=== PATIENT | female | born 1990 ===

== ENCOUNTER 2017-02-16 22:23 | Emergency (ER) | payer SELFPAY ==
--- NOTE | 2017-02-16 22:56 | C.PDOC ---
History Of Present Illness Patient presents to the ER with a complaint of dizziness, headache, not feeling well and feeling cold. Patient reports she has not taken her thyroid medication in over a year. Denies fever, chills, nausea or vomiting. Time Seen by Provider: 02/16/17 22:55 Chief Complaint (Nursing): Dizziness/Lightheaded History Per: Patient History/Exam Limitations: no limitations Onset/Duration Of Symptoms: Hrs Current Symptoms Are (Timing): Still Present Severity: Mild Pain Scale Rating Of: 2 Recent travel outside of the [place]: No Past Medical History Reviewed: Historical Data, Nursing Documentation, Vital Signs Vital Signs: Last Vital Signs Temp 98.1 F 02/16/17 22:34 Pulse 87 02/16/17 22:34 Resp 16 02/16/17 22:34 BP 125/82 02/16/17 22:34 Pulse Ox 100 02/16/17 23:14 - Medical History PMH: Hyperthyroidism, Hypothyroidism Surgical History: No Surg Hx Family History: States: No Known Family Hx - Social History Hx Tobacco Use: No Hx Alcohol Use: No Hx Substance Use: No - Immunization History Hx Tetanus Toxoid Vaccination: No Hx Influenza Vaccination: Yes Hx Pneumococcal Vaccination: Yes Review Of Systems Constitutional: Negative for: Fever, Chills Eyes: Negative for: Pain ENT: Negative for: Throat Pain Cardiovascular: Negative for: Chest Pain Respiratory: Negative for: Shortness of Breath Gastrointestinal: Negative for: Nausea, Vomiting Musculoskeletal: Negative for: Back Pain Skin: Negative for: Rash, Lesions, Jaundice, Bruising Neurological: Positive for: Headache, Dizziness Psych: Negative for: Anxiety Physical Exam - Physical Exam Appears: Non-toxic Skin: Warm, Dry Head: Atraumatic Oral Mucosa: Moist Throat: Normal Neck: Trachea Midline, Supple Chest: Symmetrical, No Tenderness Cardiovascular: Rhythm Regular, No Murmur Respiratory: No Rales, No Rhonchi, No Wheezing Gastrointestinal/Abdominal: Soft, No Tenderness Back: Normal Inspection Extremity: Bilateral: Atraumatic, Normal Color And Temperature, Normal ROM Neurological/Psych: Oriented x3, Normal Speech, Normal Cognition Gait: Steady ED Course And Treatment - Laboratory Results Result Diagrams: 02/16/17 23:45 02/16/17 23:45 O2 Sat by Pulse Oximetry: 100 (Room air) Pulse Ox Interpretation: Normal Progress Note: Blood work and urinalysis ordered. Reevaluation Time: 01:01 Reassessment Condition: Improved Medical Decision Making Medical Decision Making: Upon provider reevaluation patient is feeling better, is medically stable, and requires no further treatment in the ED at this time. Patient will be discharged home with Rx for macrobid . Counseling was provided and all questions were answered regarding diagnosis and need for follow up with the referred clinic. There is agreement to discharge plan. Return if symptoms persist or worsen. Disposition Counseled Patient/Family Regarding: Studies Performed, Diagnosis, Need For Followup, Rx Given - Disposition Referrals: [facility] [Outside] [facility] [Outside] Disposition: HOME/ ROUTINE Disposition Time: 22:56 Condition: FAIR Prescriptions: Nitrofurantoin Macrocrystals [Macrobid] 1 cap PO BID #14 cap Instructions: Urinary Tract Infection in Women (DC), Hypothyroidism (ED) Print Language: UKRAINIAN - Clinical Impression Clinical Impression: UTI (urinary tract infection), Hypothyroid - Scribe Statement The provider has reviewed the documentation as recorded by the Loyibkathy Vilchis All medical record entries made by the Jose were at my direction and personally dictated by me. I have reviewed the chart and agree that the record accurately reflects my personal performance of the history, physical exam, medical decision making, and the department course for this patient. I have also personally directed, reviewed, and agree with the discharge instructions and disposition.
[2017-02-16 23:48] LABS: BASO % 0.5 % (0.0-2.0); EOS # 0.2 K/uL (0.0-0.7); EOS % 1.9 % (0.0-4.0); HEMATOCRIT 30.7 % (34.0-47.0); LYMPH # 2.6 K/uL (1.0-4.3); LYMPH % 30.4 % (20.0-40.0); MEAN CELL VOLUME 72.7 fL (81.0-99.0); MEAN CORPUSCULAR HGB CONC 31.7 g/dL (33.0-37.0); MEAN PLATELET VOLUME 8.4 fL (7.2-11.7); MONO # 0.5 K/uL (0.0-0.8); MONO % 5.8 % (0.0-10.0); RED CELL DISTRIBUTION WIDTH 16.9 % (11.5-14.5); WHITE BLOOD COUNT 8.4 K/uL (4.8-10.8)
[2017-02-16 23:52] LABS: RBC URINE 14 /hpf (0-3); TRANSITIONAL EPITHIAL < 1 /hpf (0-3); URINE BACTERIA OCC (<OCC); URINE BILIRUBIN NEGATIVE (NEGATIVE); URINE BLOOD 2+ (NEGATIVE); URINE COLOR Yellow (YELLOW); URINE GLUCOSE (UA) NORMAL (Normal); URINE KETONE NEGATIVE (NEGATIVE); URINE LEUKOCYTE ESTERASE 2+ Leu/uL (Negative); URINE PROTEIN NEGATIVE (NEGATIVE); URINE UROBILINOGEN NORMAL mg/dL (0.2-1.0); WBC URINE 21 /hpf (0-5)
[2017-02-16 23:57] LABS: CHLORIDE 102 mmol/L (98-107); POTASSIUM 3.6 mmol/L (3.6-5.2); SODIUM 137 mmol/L (132-148)
[2017-02-16 23:59] LABS: BILIRUBIN,TOTAL 0.5 mg/dL (0.2-1.3); GFR AFRICAN-AMERICAN > 60
[2017-02-17] LABS: ALB/GLOB RATIO 1.2 (1.0-2.1); ALKALINE PHOSPHATASE 56 U/L (38-126); ALT/SGPT 17 U/L (9-52); AST/SGOT 18 U/L (14-36); BLOOD UREA NITROGEN 12 mg/dL (7-17); CALCIUM 8.2 mg/dl (8.6-10.4); CARBON DIOXIDE 24 mmol/L (22-30); GLUCOSE,RANDOM 89 mg/dL (65-105); TOTAL PROTEIN 7.5 g/dL (6.3-8.3)
[2017-02-17 00:30] LABS: THYROID STIMULATING HORMONE 9.05 mIU/L (0.46-4.68)
[2017-02-17 01:15] VITALS: BP 123/78; PULSE 80; RESP 18; TEMP 98.2; O2SAT 98
== END 2017-02-17 01:15 | disposition home or self-care (01) ==
LOC: C.ER 22:23
DX: N39.0 Urinary tract infection, site not specified (principal); E03.9 Hypothyroidism, unspecified

== ENCOUNTER 2017-04-06 18:58 | Emergency (ER) | payer SELFPAY ==
[2017-04-06 19:02] VITALS: BMI 31.7
[2017-04-06 19:05] VITALS: RESP 18; O2SAT 100
--- NOTE | 2017-04-06 19:30 | C.PDOC ---
History Of Present Illness Patient is a 26 y/o female that presents to the ED for evaluation of right sided headache for the past week. Patient also complains of associated dizziness , nausea, and 1 episode of vomiting. Pt states her headache was persistent and worse today which prompted ED visit. Otherwise, denies any LOC, weakness, numbness, visual changes, change in speech, fever, chills, or any other associated symptoms at this time. Chief Complaint (Nursing): Headache History Per: Patient History/Exam Limitations: no limitations Onset/Duration Of Symptoms: Days (1 week) Current Symptoms Are (Timing): Still Present Quality: Aching Preceeding Symptoms: None. denies: Visual Disturbances Associated Symptoms: Nausea, Vomiting. denies: Photophobia, Blurred Vision, Extremity Weakness Recent travel outside of the [place]: No Additional History Per: Patient Past Medical History Reviewed: Historical Data, Nursing Documentation, Vital Signs Vital Signs: Last Vital Signs Temp 98.4 F 04/06/17 19:02 Pulse 72 04/06/17 19:02 Resp 18 04/06/17 19:02 BP 131/79 04/06/17 19:02 Pulse Ox 100 04/06/17 19:41 - Medical History PMH: Hypothyroidism Denies: Hyperthyroidism (DENIES) Family History: States: Unknown Family Hx - Social History Hx Tobacco Use: No Hx Alcohol Use: No Hx Substance Use: No - Immunization History Hx Tetanus Toxoid Vaccination: No Hx Influenza Vaccination: Yes Hx Pneumococcal Vaccination: Yes Review Of Systems Except As Marked, All Systems Reviewed And Found Negative. Constitutional: Negative for: Fever, Chills Gastrointestinal: Positive for: Nausea, Vomiting. Negative for: Abdominal Pain , Diarrhea Musculoskeletal: Negative for: Neck Pain Skin: Negative for: Rash, Bruising Neurological: Positive for: Headache, Dizziness. Negative for: Weakness, Numbness, Incoordination, Change in Speech, Confusion Physical Exam - Physical Exam Appears: Non-toxic, Other (In mild distress) Skin: Normal Color, Warm, Dry Head: Atraumatic, Normacephalic Eye(s): bilateral: Normal Inspection, PERRL, EOMI, Other (Retinoscopy: no papilledema, no bleeding ) Neck: Normal ROM, Supple Chest: Symmetrical, No Tenderness Cardiovascular: Rhythm Regular, No Murmur Respiratory: Normal Breath Sounds, No Rales, No Rhonchi, No Wheezing Gastrointestinal/Abdominal: Soft, No Tenderness Extremity: Normal ROM, No Deformity Extremity: Bilateral: Atraumatic Neurological/Psych: Oriented x3, Normal Speech, Normal Cognition, Normal Motor, Normal Sensation, Other (Neurologically intact) ED Course And Treatment - Laboratory Results Result Diagrams: 04/06/17 19:46 04/06/17 19:46 O2 Sat by Pulse Oximetry: 100 (on RA) Pulse Ox Interpretation: Normal Progress Note: Cervical spine CT, head CT, blood work, urinalysis ordered and reviewed. Patient was given Reglan and Toradol in the ER. Disposition Counseled Patient/Family Regarding: Diagnosis - Disposition Referrals: [facility] [Outside] Disposition: HOME/ ROUTINE Disposition Time: 21:07 Condition: STABLE Prescriptions: Ibuprofen [Motrin] 1 tab PO TID PRN #30 tab PRN Reason: Pain Instructions: General Headache (ED) Forms: Gen Discharge Inst Lao Print Language: JAPANESE - POA Present On Arrival: None - Clinical Impression Clinical Impression: Headache - Scribe Statement The provider has reviewed the documentation as recorded by the Scribkathy Cho All medical record entries made by the Loyibkathy were at my direction and personally dictated by me. I have reviewed the chart and agree that the record accurately reflects my personal performance of the history, physical exam, medical decision making, and the department course for this patient. I have also personally directed, reviewed, and agree with the discharge instructions and disposition.
[2017-04-06 19:53] LABS: BASO % 0.4 % (0.0-2.0); EOS # 0.2 K/uL (0.0-0.7); EOS % 2.4 % (0.0-4.0); HEMOGLOBIN 9.8 g/dL (11.0-16.0); LYMPH # 2.7 K/uL (1.0-4.3); LYMPH % 30.4 % (20.0-40.0); MEAN CELL VOLUME 73.3 fL (81.0-99.0); MEAN CORPUSCULAR HEMOGLOBIN 22.7 pg (27.0-31.0); MEAN PLATELET VOLUME 8.2 fL (7.2-11.7); MONO # 0.6 K/uL (0.0-0.8); MONO % 6.4 % (0.0-10.0); NEUT # 5.4 K/uL (1.8-7.0); NEUT % 60.4 % (50.0-75.0); RBC 4.34 Mil/uL (3.80-5.20)
[2017-04-06 20:14] LABS: ALBUMIN 3.9 g/dL (3.5-5.0)
[2017-04-06 20:16] LABS: GFR AFRICAN-AMERICAN > 60; GFR NON-AFRICAN AMERICAN > 60
[2017-04-06 20:17] LABS: ALB/GLOB RATIO 1.2 (1.0-2.1); ALT/SGPT 29 U/L (9-52); AST/SGOT 20 U/L (14-36); BLOOD UREA NITROGEN 11 mg/dL (7-17); CALCIUM 8.6 mg/dl (8.6-10.4)
--- NOTE | 2017-04-06 20:40 | CT ---
EXAM: CT Head Without Intravenous Contrast CLINICAL HISTORY: 26 years old, female; Condition or disease; Headache; Tension TECHNIQUE: Axial computed tomography images of the head/brain without intravenous contrast. This CT exam was performed using one or more of the following dose reduction techniques: automated exposure control, adjustment of the mA and/or kV according to patient size, and/or use of iterative reconstruction technique. EXAM DATE/TIME: 04/06/2017 7:26 PM COMPARISON: No relevant prior studies available. FINDINGS: BRAIN: No significant acute abnormality identified. No acute hemorrhage seen within the brain. No acute extra-axial fluid collections visualized. No evidence of significant mass effect within the brain. Normal cabrales-white matter differentiation. VENTRICLES: No evidence of significant hydrocephalus. BONES/JOINTS: No acute fractures or other acute bony abnormality noted. SOFT TISSUES: No acute abnormality of the visualized soft tissues is seen. SINUSES: Visualized paranasal sinuses appear clear. MASTOID AIR CELLS: Mastoid air cells appear clear. IMPRESSION: - No acute findings seen within the brain. - See above for remaining findings.
--- NOTE | 2017-04-06 20:52 | CT ---
EXAM: CT Cervical Spine Without Intravenous Contrast CLINICAL HISTORY: 26 years old, female; Pain; Neck pain; Additional info: Neck pain/ headache/ nausea/ vomiting TECHNIQUE: Axial computed tomography images of the cervical spine without intravenous contrast. This CT exam was performed using one or more of the following dose reduction techniques: automated exposure control, adjustment of the mA and/or kV according to patient size, and/or use of iterative reconstruction technique. Coronal and sagittal reformatted images were created and reviewed. EXAM DATE/TIME: 04/06/2017 7:28 PM COMPARISON: No relevant prior studies available. FINDINGS: VERTEBRAE: No acute cervical spine fractures visualized. No evidence of significant vertebral subluxation. Normal alignment of the facet joints. DISCS/SPINAL CANAL/NEURAL FORAMINA: Intervertebral disc heights are preserved. No evidence of bony spinal canal stenosis. SOFT TISSUES: No acute abnormality of the visualized soft tissues is seen. OROPHARYNX: [place] tonsils appear mildly enlarged bilaterally. No peritonsillar abscess is seen. LUNG APICES: No pneumothorax seen. IMPRESSION: - No evidence of fractures or other acute bony abnormality. - Mild enlargement of the palatine tonsils incidentally noted, which could be due to tonsillar hypertrophy or tonsillitis. Recommend clinical correlation. - See above for remaining findings.
[2017-04-06 21:33] VITALS: BP 120/75; PULSE 75; TEMP 98.5
--- NOTE | 2017-04-07 10:00 | RAD ---
PROCEDURE: Cervical Spine Radiographs. HISTORY: Pain. COMPARISON: None. FINDINGS: BONES: Straightening of the normal cervical lordosis. . No fracture. Dens Intact. DISC SPACES: Normal. SOFT TISSUES: Normal. No prevertebral soft tissue swelling. OTHER FINDINGS: None. IMPRESSION: No fracture. Straightening of the normal cervical lordosis consistent with positioning and/or spasm.
== END 2017-04-06 21:34 | disposition home or self-care (01) ==
LOC: C.ER 18:58
DX: R51 Headache (principal)
CPT/HCPCS: 70450; 72040; 72125; 80053; 85025; 96374; 96375; 99285; J1885; J2765

== ENCOUNTER 2017-08-10 09:30 | Emergency (ER) | payer SELFPAY ==
[2017-08-10 09:30] VITALS: BMI 31.0
[2017-08-10] MEDS ORDERED: Sodium Chloride 0.9% 1,000 ML IV ONE (09:48)
--- NOTE | 2017-08-10 09:54 | C.PDOC ---
History Of Present Illness 26 y/o female presents to ED with c/o abdominal pain for 20 days. Patient reports she had a depo shot 06/13/17, but notes vaginal bleeding and cramping began in June. Denies fever, chills, nausea, vomiting, diarrhea, or other associated symptoms. Time Seen by Provider: 08/10/17 09:41 Chief Complaint (Nursing): Abdominal Pain History Per: Patient History/Exam Limitations: no limitations Onset/Duration Of Symptoms: Days Current Symptoms Are (Timing): Still Present Location Of Pain/Discomfort: Diffuse Quality Of Discomfort: Cramping, "Pain" Associated Symptoms: denies: Fever, Nausea, Vomiting, Diarrhea, Urinary Symptoms Recent travel outside of the [place]: No Abnormal Vaginal Bleeding: Yes Past Medical History Reviewed: Historical Data, Nursing Documentation, Vital Signs Vital Signs: Last Vital Signs Temp 98.2 F 08/10/17 11:41 Pulse 84 08/10/17 11:41 Resp 18 08/10/17 11:41 BP 128/78 08/10/17 11:41 Pulse Ox 96 08/10/17 18:33 - Medical History PMH: Hypothyroidism Denies: Hyperthyroidism (DENIES) Family History: States: Unknown Family Hx - Social History Hx Tobacco Use: No Hx Alcohol Use: No Hx Substance Use: No - Immunization History Hx Tetanus Toxoid Vaccination: No Hx Influenza Vaccination: Yes Hx Pneumococcal Vaccination: Yes Review Of Systems Except As Marked, All Systems Reviewed And Found Negative. Constitutional: Negative for: Fever, Chills Cardiovascular: Negative for: Chest Pain Respiratory: Negative for: Cough, Shortness of Breath, Wheezing Gastrointestinal: Positive for: Abdominal Pain. Negative for: Vomiting Genitourinary: Positive for: Vaginal Bleeding Skin: Negative for: Rash Neurological: Negative for: Headache, Dizziness Physical Exam - Physical Exam Appears: Non-toxic, No Acute Distress Skin: Warm, Dry Head: Atraumatic, Normacephalic Chest: Symmetrical Cardiovascular: Rhythm Regular Respiratory: Normal Breath Sounds, No Rales, No Rhonchi, No Wheezing Gastrointestinal/Abdominal: Soft, Tenderness (diffuse), No Guarding, No Rebound Back: Normal Inspection Extremity: Normal ROM, Capillary Refill (< 2 sec.) Neurological/Psych: Oriented x3, Normal Speech, Normal Cognition ED Course And Treatment - Laboratory Results Result Diagrams: 08/10/17 10:12 08/10/17 10:12 Lab Interpretation: No Acute Changes O2 Sat by Pulse Oximetry: 96 (RA) Pulse Ox Interpretation: Normal - CT Scan/US No standard instances Other Rad Studies (CT/US): Read By Radiologist, Radiology Report Reviewed CT/US Interpretation: FINDINGS: UTERUS: Measures 8.7 x 5.0 x 6.4 cm. Retroverted. ENDOMETRIUM: Measures 5 mm in diameter. CERVIX: No cervical abnormality identified. RIGHT OVARY: Measures 3.3 x 1.8 x 2.3 cm. Blood flow is demonstrated. LEFT OVARY: Measures 3.1 x 2.4 x 3.4 cm. Blood flow is demonstrated. FREE FLUID: No significant free fluid noted. OTHER FINDINGS: None. IMPRESSION: No acute findings. Progress Note: Ultrasound, UA, labs ordered. Treated with Toradol and IVFs. Reassessment Condition: Improved Disposition Counseled Patient/Family Regarding: Studies Performed, Diagnosis, Need For Followup, Rx Given - Disposition Referrals: [facility] [Outside] [facility] [Outside] Disposition: HOME/ ROUTINE Disposition Time: 11:40 Condition: STABLE Prescriptions: Nitrofurantoin Macrocrystals [Macrobid] 1 cap PO BID #14 cap Instructions: Urinary Tract Infection in Women (ED) Forms: [employer] (Bengali) Print Language: UKRAINIAN - POA Present On Arrival: None - Clinical Impression Clinical Impression: Abdominal pain, UTI (urinary tract infection) - 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 - Scribe Statement The provider has reviewed the documentation as recorded by the Scribe SM All medical record entries made by the Scribe were at my direction and personally dictated by me. I have reviewed the chart and agree that the record accurately reflects my personal performance of the history, physical exam, medical decision making, and the department course for this patient. I have also personally directed, reviewed, and agree with the discharge instructions and disposition.
[2017-08-10 10:24] LABS: BASO % 0.4 % (0.0-2.0); EOS # 0.1 K/uL (0.0-0.7); EOS % 1.3 % (0.0-4.0); HEMATOCRIT 33.3 % (34.0-47.0); LYMPH # 1.8 K/uL (1.0-4.3); LYMPH % 25.8 % (20.0-40.0); MEAN CELL VOLUME 73.8 fL (81.0-99.0); MEAN CORPUSCULAR HEMOGLOBIN 23.1 pg (27.0-31.0); MEAN CORPUSCULAR HGB CONC 31.3 g/dL (33.0-37.0); MEAN PLATELET VOLUME 8.3 fL (7.2-11.7); MONO # 0.4 K/uL (0.0-0.8); MONO % 6.3 % (0.0-10.0); RED CELL DISTRIBUTION WIDTH 17.5 % (11.5-14.5); WHITE BLOOD COUNT 6.8 K/uL (4.8-10.8)
[2017-08-10 10:32] LABS: ALKALINE PHOSPHATASE 55 U/L (38-126); ALT/SGPT 37 U/L (9-52); AST/SGOT 21 U/L (14-36); BILIRUBIN,TOTAL 0.3 mg/dL (0.2-1.3); BLOOD UREA NITROGEN 10 mg/dL (7-17); CALCIUM 8.8 mg/dl (8.6-10.4); CARBON DIOXIDE 23 mmol/L (22-30); CHLORIDE 103 mmol/L (98-107); GFR AFRICAN-AMERICAN > 60; GLUCOSE,RANDOM 76 mg/dL (65-105); POTASSIUM 3.9 mmol/L (3.6-5.2); SODIUM 137 mmol/L (132-148); TOTAL PROTEIN 8.4 g/dL (6.3-8.3)
[2017-08-10 10:34] LABS: ALB/GLOB RATIO 1.1 (1.0-2.1)
[2017-08-10 11:01] LABS: RBC URINE 9 /hpf (0-3); URINE BILIRUBIN NEGATIVE (NEGATIVE); URINE BLOOD 1+ (NEGATIVE); URINE COLOR Yellow (YELLOW); URINE GLUCOSE (UA) NORMAL (Normal); URINE KETONE NEGATIVE (NEGATIVE); URINE LEUKOCYTE ESTERASE 2+ Leu/uL (Negative); URINE PROTEIN NEGATIVE (NEGATIVE); URINE UROBILINOGEN NORMAL mg/dL (0.2-1.0); WBC URINE 9 /hpf (0-5)
--- NOTE | 2017-08-10 11:25 | US ---
HISTORY: vaginal bleeding COMPARISON: None available. TECHNIQUE: Real-time transabdominal pelvic ultrasound was performed. In addition a transvaginal pelvic ultrasound was necessary to better depict pelvic anatomy. FINDINGS: UTERUS: Measures 8.7 x 5.0 x 6.4 cm. Retroverted. ENDOMETRIUM: Measures 5 mm in diameter. CERVIX: No cervical abnormality identified. RIGHT OVARY: Measures 3.3 x 1.8 x 2.3 cm. Blood flow is demonstrated. LEFT OVARY: Measures 3.1 x 2.4 x 3.4 cm. Blood flow is demonstrated. FREE FLUID: No significant free fluid noted. OTHER FINDINGS: None. IMPRESSION: No acute findings.
[2017-08-10 11:42] VITALS: BP 128/78; PULSE 84; RESP 18; TEMP 98.2
[2017-08-10 18:33] VITALS: O2SAT 96
== END 2017-08-10 11:43 | disposition home or self-care (01) ==
LOC: C.ER 09:30
DX: N39.0 Urinary tract infection, site not specified (principal); R10.9 Unspecified abdominal pain
CPT/HCPCS: 76830; 76856; 80053; 81001; 84703; 85025; 96361; 96374; 99284; J1885; J7040

== ENCOUNTER 2017-10-17 19:35 | Emergency (ER) | payer OTHER ==
[2017-10-17 19:35] VITALS: BMI 31.0
[2017-10-17 20:37] VITALS: RESP 20; O2SAT 98
[2017-10-17] MEDS ORDERED: Apap-Butalbital-Caffeine 325-50-40mg Tab PO STA (21:20)
--- NOTE | 2017-10-17 23:40 | C.PDOC ---
History Of Present Illness 26 y/o female presents to ED with complaints of intermittent headache for 2 weeks with associated nausea and photophobia. Patient denies prior history of headache and reports she took 200mg Advil with minimal relief. Patient states pain is on left frontal area radiating to left orbital area. Patient denies decreased vision, numbness,weakness or any other complaints at this time. Time Seen by Provider: 10/17/17 21:04 Chief Complaint (Nursing): Headache History Per: Patient History/Exam Limitations: no limitations Onset/Duration Of Symptoms: Days Current Symptoms Are (Timing): Still Present Associated Symptoms: Photophobia, Nausea Past Medical History Reviewed: Historical Data, Nursing Documentation, Vital Signs Vital Signs: Last Vital Signs Temp 97.8 F 10/18/17 00:18 Pulse 82 10/18/17 00:18 Resp 20 10/18/17 00:18 BP 130/70 10/18/17 00:18 Pulse Ox 98 10/18/17 08:08 - Medical History PMH: Hypothyroidism Surgical History: No Surg Hx Family History: States: No Known Family Hx - Social History Hx Tobacco Use: No Hx Alcohol Use: No Hx Substance Use: No - Immunization History Hx Tetanus Toxoid Vaccination: No Hx Influenza Vaccination: No Hx Pneumococcal Vaccination: No Review Of Systems Constitutional: Negative for: Fever, Chills Eyes: Negative for: Vision Change Gastrointestinal: Positive for: Nausea Skin: Negative for: Rash Neurological: Positive for: Headache. Negative for: Weakness, Numbness Physical Exam - Physical Exam Appears: Non-toxic, No Acute Distress Skin: Warm, Dry, No Rash Head: Atraumatic, Tenderness (frontal sinus L>R), No Swelling (facial ), No Other (temporal area tenderness) Eye(s): bilateral: Normal Inspection, PERRL, EOMI Ear(s): Bilateral: Normal Oral Mucosa: Moist Teeth: Normal Dentition Neck: Normal ROM, Supple Cardiovascular: Rhythm Regular Respiratory: Normal Breath Sounds, No Rhonchi, No Wheezing Extremity: Normal ROM, Capillary Refill (<2 seconds) Neurological/Psych: Oriented x3, Normal Motor, Normal Sensation Gait: Steady ED Course And Treatment O2 Sat by Pulse Oximetry: 98 (RA) Pulse Ox Interpretation: Normal Medical Decision Making Medical Decision Making: [place]: Toradol IM and Fiouricet given Patient still complaining of pain and requested head CT 234 [address] HEAD FINDINGS: Brain: Unremarkable. No acute hemorrhage. No significant white matter disease. No cerebral edema. Ventricles: Unremarkable. No ventriculomegaly. Bones/joints: Unremarkable. No acute fracture. Soft tissues: Unremarkable. Sinuses: No acute sinusitis. Mild ethmoid sinus membrane thickening. Mastoid air cells: Unremarkable as visualized. No mastoid effusion. IMPRESSION: No acute intracranial pathology is appreciated. The brain had a similar appearance on 04/06/17. Pt now feels better, in NAD, sleeping comfortably, VSS. will follow up with PMD or medical clinic for neurology referral. pt understands and agrees to plan Scribe Attestation: Documented by Thor Purdy acting as a scribe for Narcisa Lazcano PA-C. Scribe Attestation: All medical record entries made by the Scribe were at my direction and personally dictated by me. I have reviewed the chart and agree that the record accurately reflects my personal performance of the history, physical exam, medical decision making, and the department course for this patient. I have also personally directed, reviewed, and agree with the discharge instructions and disposition. 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 - Scribe Statement The provider has reviewed the documentation as recorded by the Scribe Tiffany Bradford All medical record entries made by the Scribe were at my direction and personally dictated by me. I have reviewed the chart and agree that the record accurately reflects my personal performance of the history, physical exam, medical decision making, and the department course for this patient. I have also personally directed, reviewed, and agree with the discharge instructions and disposition.
[2017-10-18 00:19] VITALS: BP 130/70; PULSE 82; TEMP 97.8
--- NOTE | 2017-10-18 08:11 | CT ---
PROCEDURE: CT HEAD WITHOUT CONTRAST. HISTORY: Headache COMPARISON: 04/06/2017. TECHNIQUE: Axial computed tomography images were obtained through the head/brain without intravenous contrast. Radiation dose: Total exam DLP = 782.42 mGy-cm. This CT exam was performed using one or more of the following dose reduction techniques: Automated exposure control, adjustment of the mA and/or kV according to patient size, and/or use of iterative reconstruction technique. FINDINGS: HEMORRHAGE: No intracranial hemorrhage. BRAIN: [place]-white matter differentiation is preserved. There is no mass, mass effect or abnormal extra-axial fluid collection VENTRICLES: The ventricles are normal in size, shape and configuration. CALVARIUM: The skull base and calvarium are normal. PARANASAL SINUSES: Predominantly clear. MASTOID AIR CELLS: Predominantly clear. OTHER FINDINGS: None. IMPRESSION: No acute intracranial abnormality. A preliminary report was provided by [employer] [facility].
== END 2017-10-18 00:20 | disposition home or self-care (01) ==
LOC: C.ER 19:35
DX: G43.909 Migraine, unspecified, not intractable, without status migrainosus (principal)
CPT/HCPCS: 70450; 96372; 99285; J1885

== ENCOUNTER 2019-02-15 20:50 | Emergency (ER) | payer SELFPAY ==
[2019-02-15 20:50] VITALS: BMI 33.6
[2019-02-15 21:15] VITALS: BP 131/91; PULSE 91; RESP 20; TEMP 97.7; O2SAT 99
--- NOTE | 2019-02-15 22:25 | C.PDOC ---
History Of Present Illness 28 year old female presents to the ED c/o sire throat for the past 3 days. Patient reports her throat feels swollen on the inside, feels like she is "chocking". Patient also states she has painful swallowing. Patient denies fever, chills, cough, congestion, headache, SOB, wheezing, recent travel, sick contacts. Time Seen by Provider: 02/15/19 21:20 Chief Complaint (Nursing): ENT Problem History Per: Patient Onset/Duration Of Symptoms: Days (3) Current Symptoms Are (Timing): Still Present Quality (Mouth/Throat): Tenderness, Swelling Anticoagulant/Antiplatlet Use?: No Recent Aspirin Use: No Past Medical History Reviewed: Historical Data, Nursing Documentation, Vital Signs Vital Signs: Last Vital Signs Temp 97.7 F 02/15/19 20:59 Pulse 91 H 02/15/19 20:59 Resp 20 02/15/19 20:59 BP 131/91 H 02/15/19 20:59 Pulse Ox 99 02/15/19 20:59 Primary Care Provider: Lin Bennett - Medical History PMH: Hypothyroidism Denies: Hyperthyroidism (DENIES) Surgical History: No Surg Hx Family History: States: Unknown Family Hx - Social History Hx Tobacco Use: No Hx Alcohol Use: No Hx Substance Use: No - Immunization History Hx Tetanus Toxoid Vaccination: No Hx Influenza Vaccination: No Hx Pneumococcal Vaccination: No Review Of Systems Constitutional: Negative for: Fever, Chills ENT: Positive for: Throat Pain, Throat Swelling. Negative for: Nose Discharge, Nose Congestion Respiratory: Negative for: Cough, Shortness of Breath Gastrointestinal: Negative for: Vomiting, Diarrhea Musculoskeletal: Negative for: Back Pain Skin: Negative for: Rash Neurological: Negative for: Weakness, Numbness, Headache, Dizziness Physical Exam - Physical Exam Appears: Well, Non-toxic, No Acute Distress Skin: Normal Color, Warm, Dry Head: Atraumatic, Normacephalic Eye(s): bilateral: Normal Inspection (no scleral icterus), PERRL, EOMI Ear(s): Bilateral: Normal (no drainage) Nose: Normal Oral Mucosa: Moist Throat: No Exudate, Other (enlarged tonsils bilaterally . Airway patent) Neck: Normal ROM, Supple Chest: Symmetrical Respiratory: No Accessory Muscle Use, Other (nromal inspiratory effort) Neurological/Psych: Oriented x3, Normal Speech (no muffled voice) ED Course And Treatment O2 Sat by Pulse Oximetry: 99 (ON RA) Pulse Ox Interpretation: Normal Medical Decision Making Medical Decision Making: Plan: * Amoxicillin 500 mg PO * Motrin 800 mg PO * Decadron 10 mg IM Patient able to swallow secretions, no muffled voice. Patient will be treated for tonsillitis. Disposition Counseled Patient/Family Regarding: Diagnosis, Need For Followup, Rx Given - Disposition Disposition: HOME/ ROUTINE Disposition Time: 22:23 Condition: STABLE Prescriptions: Amoxicillin 500 mg PO TID #15 tablet Ibuprofen [Motrin Tab] 600 mg PO TID #21 tab Instructions: Sore Throat, Adult (DC) Forms: [employer] (Israeli), Gen Discharge Inst Israeli - Clinical Impression Clinical Impression: Acute tonsillitis - PA / COUNTY DIRECTOR / Resident Statement MD/DO has reviewed & agrees with the documentation as recorded. - Scribe Statement The provider has reviewed the documentation as recorded by the Scribe Shekhar Barclay All medical record entries made by the Scribe were at my direction and personally dictated by me. I have reviewed the chart and agree that the record accurately reflects my personal performance of the history, physical exam, medical decision making, and the department course for this patient. I have also personally directed, reviewed, and agree with the discharge instructions and disposition.
== END 2019-02-15 22:57 | disposition home or self-care (01) ==
LOC: C.ER 20:50
DX: J03.90 Acute tonsillitis, unspecified (principal)
CPT/HCPCS: 96372; 99283; J1100